=== PATIENT | female | born 1980 | race African-American/Black ===

== ENCOUNTER 2018-01-16 09:05 | Emergency (ER) | payer MEDICAID ==
[~2018-01-16] VITALS: Ht 154.9 cm; Wt 95.3 kg
[~2018-01-16 09:05] MED LIST: CLON0.1T; LOVA20TA4; METO25TA5
[2018-01-16 09:45] LABS: Basophils # (auto) 0.1 uL; Eosinophils # (auto) 0.3 uL; Eosinophils % (auto) 3.8 % (0.0-7.0); Hematocrit 41.1 % (36.0-46.0); Hemoglobin 13.5 g/dL (12.2-16.2); Lymphocytes # (auto) 2.9 uL; Lymphocytes % (auto) 35.7 % (10.0-50.0); Mean Corpuscular Hemoglobin 28.3 pg (28.0-32.0); Mean Corpuscular Hgb Conc. 32.8 g/dL (32.0-36.0); Mean Corpuscular Volume 86.2 fL (80.0-100.0); Monocytes # (auto) 0.5 uL; Monocytes % (auto) 5.6 % (0.0-12.0); Neutrophils # (auto) 4.4 uL; Neutrophils % (auto) 53.9 % (37.0-80.0); Nucleated Red Blood Cells % 0.1 %; Platelet Count (auto) 233 10^3/uL (140-450); Red Blood Cells 4.77 10^6/uL (4.0-5.20); Red Cell Distribution Width 16.6 % (11.8-14.3); White Blood Cell 8.2 10^3/uL (4.4-10.8)
[2018-01-16 09:53] LABS: Urine Bacteria NONE SEEN /hpf (None Seen); Urine Blood Negative /uL (Negative); Urine WBC <1 /hpf (0 - 5)
[2018-01-16 09:55] LABS: Alanine Aminotransferase 28 U/L (13-56); Albumin 3.2 g/dL (3.4-5.0); Amylase 89 U/L (25-115); Anion Gap 6 (5-15); Aspartate Aminotransferase 15 U/L (15-37); Blood Urea Nitrogen 14 mg/dL (7-18); Calcium 8.2 mg/dL (8.5-10.1); Carbon Dioxide 26 mmol/L (21-32); Chloride 105 mmol/L (98-107); Glucose 132 mg/dL (74-106); Lipase 168 U/L (73-393); Potassium 3.1 mmol/L (3.5-5.1); Sodium 137 mmol/L (136-145)
[2018-01-16 09:59] LABS: Alkaline Phosphatase 77 U/L (45-117); BUN/Creatinine Ratio 10.8; Bilirubin, Total 0.2 mg/dL (0.2-1.0); GFR African American 60 mL/min; GFR Non-African American 50 mL/min; Total Protein 7.2 g/dL (6.4-8.2)
[2018-01-16] MEDS ORDERED: POTASSIUM EFFERVESENT TAB 25 MEQ PO ONE (10:00)
[2018-01-16 10:16] LABS: Alcohol, Urine < 3.0 mg/dL (0-5); Amphetamine Screen, Urine NEGATIVE (NEGATIVE); Barbiturate Scree,Urine NEGATIVE (NEGATIVE); Benzodiazephine Screen, Urine NEGATIVE (NEGATIVE); Cannabinoid Screen, Urine POSITIVE (NEGATIVE); Cocaine Screen, Urine NEGATIVE (NEGATIVE); Opiate Scree,Urine NEGATIVE (NEGATIVE); Phencyclidine Screen, Urine NEGATIVE (NEGATIVE)
[2018-01-16] MEDS ORDERED: PROMETHAZINE HCL 25 MG/ML 1ML IV ONE (11:45)
[2018-01-16] MEDS ORDERED: KETOROLAC TROMETH 30 MG/ML 1ML VIAL IV ONE (11:45)
[2018-01-16] MEDS ORDERED: PROMETHAZINE HCL 25 MG/ML 1ML IV PRN (11:45)
[2018-01-16 11:53] VITALS: BP 119/86
== END 2018-01-16 13:27 | disposition home or self-care (01) ==
LOC: ER 09:05
DX: K80.20 Calculus of gallbladder without cholecystitis without obstruction (principal); F12.10 Cannabis abuse, uncomplicated; E87.6 Hypokalemia; E46 Unspecified protein-calorie malnutrition; R73.9 Hyperglycemia, unspecified; E78.5 Hyperlipidemia, unspecified; I10 Essential (primary) hypertension; F17.210 Nicotine dependence, cigarettes, uncomplicated; Z68.39 Body mass index [BMI] 39.0-39.9, adult; Z79.899 Other long term (current) drug therapy
CPT/HCPCS: 36415; 71046; 74176; 80053; 80307; 81001; 82150; 83690; 84484; 84702; 85025; 93005; 94761; 96374; 96375; 99285; J1885; J2550; J7030

== ENCOUNTER 2018-06-06 09:47 | Emergency (ER) | payer MEDICAID ==
[~2018-06-06] VITALS: Ht 165.1 cm; Wt 93.4 kg
[2018-06-06 11:47] LABS: Urine Bacteria NONE SEEN /hpf (None Seen); Urine Blood Negative /uL (Negative); Urine Specific Gravity 1.013 (1.001-1.035); Urine WBC 2 /hpf (0 - 5)
[2018-06-06 12:23] LABS: Basophils # (auto) 0 uL; Basophils % (auto) 0.4 % (0.0-2.0); Eosinophils # (auto) 0.3 uL; Eosinophils % (auto) 3.7 % (0.0-7.0); Hematocrit 41.3 % (36.0-46.0); Hemoglobin 13.3 g/dL (12.2-16.2); Lymphocytes # (auto) 2.7 uL; Mean Corpuscular Hemoglobin 27.7 pg (28.0-32.0); Mean Corpuscular Hgb Conc. 32.2 g/dL (32.0-36.0); Monocytes # (auto) 0.5 uL; Monocytes % (auto) 6.4 % (0.0-12.0); Neutrophils # (auto) 4.2 uL; Neutrophils % (auto) 54.5 % (37.0-80.0); Platelet Count (auto) 240 10^3/uL (140-450); Red Cell Distribution Width 16.6 % (11.8-14.3); White Blood Cell 7.6 10^3/uL (4.4-10.8)
[2018-06-06 12:55] LABS: Albumin 3.6 g/dL (3.4-5.0); Calcium 8.9 mg/dL (8.5-10.1); Potassium 3.3 mmol/L (3.5-5.1)
[2018-06-06 13:00] LABS: BUN/Creatinine Ratio 15.4; Bilirubin, Total 0.2 mg/dL (0.2-1.0); Total Protein 7.8 g/dL (6.4-8.2)
[2018-06-06 13:14] VITALS: BP 131/71
[2018-06-06] MEDS ORDERED: POTASSIUM CHL 10% (20 MEQ/15ML) 15ml ORAL SOLN PO ONE (13:15)
== END 2018-06-06 13:42 | disposition home or self-care (01) ==
LOC: ER 09:52
DX: K80.80 Other cholelithiasis without obstruction (principal); E87.6 Hypokalemia; E78.5 Hyperlipidemia, unspecified; I10 Essential (primary) hypertension; F17.210 Nicotine dependence, cigarettes, uncomplicated; Z79.899 Other long term (current) drug therapy
CPT/HCPCS: 36415; 74176; 80053; 81001; 85025

== ENCOUNTER 2018-09-14 22:36 | Emergency (ER) | payer MEDICAID ==
[~2018-09-14] VITALS: Ht 165.1 cm; Wt 94.3 kg
[2018-09-14 23:57] VITALS: BP 143/89
[2018-09-15] MEDS ORDERED: methylPREDNISolone SOD SUCC 125 MG/2 ML VL IM ONE (00:15)
[2018-09-15] MEDS ORDERED: cefTRIAXone SOD 1,000 MG VL IM ONE (00:15)
[2018-09-15] MEDS ORDERED: HYDROcodone-ACET 5/325MG TAB PO ONE (00:15)
== END 2018-09-15 00:57 | disposition home or self-care (01) ==
LOC: ER 22:38
DX: N61.1 Abscess of the breast and nipple (principal); E11.9 Type 2 diabetes mellitus without complications; F17.210 Nicotine dependence, cigarettes, uncomplicated
CPT/HCPCS: 81002; 81025; 96372; 99283; J0696; J2930

== ENCOUNTER 2025-02-18 15:55 | Emergency (ER) | payer MEDICAID ==
[~2025-02-18] VITALS: Ht 165.1 cm; Wt 86.0 kg
--- NOTE | 2025-02-18 18:26 | ED.PDOC ---
GI ASSESSMENT HPI Comments 44-year-old female presents to ER with complaints of right flank pain x 45 minutes. Patient reports that he started experiencing unprovoked right-sided flank pain 45 minutes prior to arrival to ER. She rates her current pain a 7/10 to right flank with radiation towards the right lower abdomen. States she did take Tylenol for her pain with some relief. Patient presents to ER ambulatory on arrival, with steady gait, in no distress. Denies fever, body aches, chills, night sweats, nausea/vomiting, dysuria/hematuria or any further symptoms/complaints Chief Complaint: Flank Pain Time Seen by MD: 18:15 Primary Care Provider: DR SHERMAN Reviewed Notes: Nurses Notes, Medications, Allergies Allergies: Coded Allergies: NO KNOWN ALLERGIES (Unverified , 05/14/10) Home Meds Active Scripts Acetaminophen (Acetaminophen) 500 Mg Tab, 500 MG PO Q4HPRN, #30 TAB 0 Refills Prov:EBONY KAUFFMAN 02/18/25 Reported Medications [Metoprolol Tart25 Mg] (Metoprolol Tartrate) 25 MG TAB No Conflict Check, MG 06/23/12 [[id number] Mg] (Lovastatin) 20 MG TAB No Conflict Check, MG 06/23/12 [Clonidine Hcl0.1 Mg] (Clonidine Hcl) 0.1 MG TAB No Conflict Check, MG 06/23/12 [Metoprolol Tart25 Mg] (Metoprolol Tartrate) 25 MG TAB No Conflict Check, MG 06/23/12 Information Source: Patient Mode of Arrival: Ambulatory Past Medical History PAST MEDICAL HISTORY: Anemia Past Medical History (Other): Stage 4 CKD Surgical History: RELIGIOUS EDUCATION COORDINATOR History: No Pertinent RELIGIOUS EDUCATION COORDINATOR History Family History Family History: No family hx of Cancer, No family hx of DM, No family hx of HTN, No family hx ofKidney conner Social History Smoker: Cigarettes, Less Than 1 Pack/Day Alcohol: Denies ETOH Use Drugs: Denies Drug Use Lives In: Home Constitutional: denies: chills, diaphoresis, fatigue, fever, malaise, sweats, weakness, others EENTM: denies: blurred vision, double vision, ear bleeding, ear discharge, ear drainage, ear pain, ear ringing, eye pain, eye redness, hearing loss, mouth pa in, mouth swelling, nasal discharge, nose bleeding, nose congestion, nose pain, photophobia, tearing, throat pain, throat swelling, voice changes, others Respiratory: denies: cough, hemoptysis, orthopnea, SOB at rest, shortness of breath, SOB with excertion, stridor, wheezing, others Cardiovascular: denies: chest pain, dizzy spells, diaphoresis, Dyspnea on exertion, edema, irregular heart beat, left arm pain, lightheadedness, palpitations, PND, syncope, others Gastrointestinal: denies: abdomen distended, abdominal pain, blood streaked bowels, constipated, diarrhea, dysphagia, difficulty swallowing, hematemesis, melena, nausea, poor appetite, poor fluid intake, rectal bleeding, rectal pain, vomiting, others Genitourinary: reports: others (As stated in HPI) Neurological: denies: dizziness, fainting, headache, left sided numbness, left sided weakness, numbness, paresthesia, pre-existing deficit, right sided numbness, right sided weakness, seizure, speech problems, tingling, tremors, weakness, others Musculoskeletal: denies: back pain, gout, joint pain, joint swelling, muscle pain, muscle stiffness, neck pain, others Integumetry: denies: bruises, change in color, change in hair/nails, dryness, laceration, lesions, lumps, rash, wounds, others Allergic/Immunocompromised: denies: Difficulty Healing, Frequent Infections, Hives, Itching, others Hematologic/Lymphatic: denies: anemia, blood clots, easy bleeding, easy bruising, swollen glands, others Endocrine: denies: excessive hunger, excessive sweating, excessive thirst, excessive urination, flushing, intolerance to cold, intolerance to heat, unexplained weight gain, unexplained weight loss, others Psychiatric: denies: anxiety, bipolar disorder, depression, hopeless, panic disorder, schizophrenia, sleepless, suicidal, others Physical Exam General Appearance: No Apparent Distress, Obese HEENT: PERRL/EOMI Neck: Full Range of Motion, Non-Tender, Normal Respiratory: Chest Non-Tender, Lungs Clear, No Accessory Muscle Use, No Respiratory Distress, Normal Breath Sounds Cardiovascular: No Murmur, No Gallop, Regular Rate/Rhythm Breast Exam: Deferred Gastrointestinal: Non Tender, No Pulsatile Mass, Soft Genitalia: Deferred Pelvic: Deferred Rectal: Deferred Extremities: Normal capillary refill, Normal range of motion Musculoskeletal : Extremity Location: Back (TTP to right flank noted. No CVA tenderness noted bilaterally) Neurologic: Alert, No Motor Deficits, Normal Affect, Normal Mood, No Sensory Deficits Cerebellar Function: Normal Reflexes: Normal Skin: Dry, Normal Color, Warm Peripheral Pulses: 2+ Radial (R), 2+ Radial (L), 2+ Brachial (R), 2+ Brachial (L) Lymphatic: No Adenopathy Was a procedure done? Was a procedure done?: No Sedation Sedation?: No GI differential Dx Differential Diagnosis: Appendicitis, GI hemorrhage, Ischemic Bowel, Trauma intraabdominal, Urinary Obstruction, UTI, Urolithiasis X-Ray, Labs, Meds, VS Vital Signs Date Time Temp Pulse Resp B/P (MAP) Pulse Ox O2 Delivery O2 Flow Rate FiO2 02/18/25 16:03 98.3 91 20 143/69 96 98.3 Lab Test 02/18/25 18:27 02/18/25 18:05 Range/Units White Blood Count 9.3 4.4-10.8 10^3/uL Red Blood Count 3.97 L 4.0-5.20 10^6/uL Hemoglobin 9.5 L 12.2-16.2 g/dL Hematocrit 29.9 L 36.0-46.0 % Mean Corpuscular Volume 75.3 L 80.0-100.0 fL Mean Corpuscular Hemoglobin 24.0 L 28.0-32.0 pg Mean Corpuscular Hemoglobin Concent 31.9 L 32.0-36.0 g/dL Red Cell Distribution Width 21.4 H 11.8-14.3 % Platelet Count 322 140-450 10^3/uL Mean Platelet Volume 8.7 6.9-10.8 fL Neutrophils (%) (Auto) 65.9 37.0-80.0 % Lymphocytes (%) (Auto) 24.0 10.0-50.0 % Monocytes (%) (Auto) 5.8 0.0-12.0 % Eosinophils (%) (Auto) 3.6 0.0-7.0 % Basophils (%) (Auto) 0.7 0.0-2.0 % Neutrophils # (Auto) 6.1 1.6-8.6 10 ^3/uL Lymphocytes # (Auto) 2.2 0.4-5.4 10 ^3/uL Monocytes # (Auto) 0.5 0-1.3 10 ^3/uL Eosinophils # (Auto) 0.3 0-0.8 10 ^3/uL Basophils # (Auto) 0.1 0-0.2 10 ^3/uL Nucleated Red Blood Cells 0.0 % Sodium Level 140 136-145 mmol/L Potassium Level 3.7 3.5-5.1 mmol/L Chloride Level 112 H 98-107 mmol/L Carbon Dioxide Level 23 20-31 mmol/L Anion Gap 5 5-15 Blood Urea Nitrogen 16 9-23 mg/dL Creatinine 2.40 H 0.550-1.02 mg/dL Glomerular Filtration Rate Calc 25 >90 mL/min BUN/Creatinine Ratio 6.7 L 10.0-20.0 Serum Glucose 95 74-106 mg/dL Calcium Level 8.7 8.7-10.4 mg/dL Urine Color Light-yellow Yellow Urine Clarity Clear Clear Urine pH 5.5 5.0-9.0 Urine Specific [place] 1.016 1.001-1.035 Urine Protein 2+ H Negative Urine Ketones Negative Negative Urine Blood Trace H Negative /uL Urine Nitrite Negative Negative Urine Bilirubin Negative Negative Urine Urobilinogen Normal Negative mg/dL Urine Leukocyte Esterase Negative Negative /uL Urine RBC 1 0 - 4 /hpf Urine Microscopic WBC 1 0-5 /HPF Urine Squamous Epithelial Cells Few <5 /hpf Urine Bacteria Few H None Seen /hpf Urine Glucose Normal Normal mg/dL PATIENT: MICHEL MONTEZ LACCT: [id number]: [id number] : 1980 LOC: ER ROOM / BED: / AGE / SEX: 44 / F ADM STATUS: REG ER SERVICE 1821 ORDERING PHYSICIAN: EBONY KAUFFMAN PROCEDURE(s): ABPL - CT AB PEL WO CON-NO ORAL OR IV REASON: right flank pain ORDER NUMBER(s): [id number], ACCESSION NUMBER(s): [id number] EXAM: CT CT AB PEL WO CON-NO ORAL OR IV INDICATION: right flank pain TECHNIQUE: Volumetric multidetector CT images of the abdomen and pelvis were obtained without contrast. All CT scans at this facility use dose modulation, iterative reconstruction, and/or weight based dosing when appropriate to reduce radiation dose to as low as reasonably achievable. COMPARISON: None FINDINGS: [LOWER CHEST]: The partially visualized lung bases are clear without a pleural effusion. The cardiac size is normal without pericardial effusion. [LIVER]: Normal hepatic size without suspicious focal lesion. [GALLBLADDER AND BILIARY TREE]: Cholelithiasis with presumed gallbladder sludge. Large gallstone measuring up to 2.5 cm of the gallbladder neck. [SPLEEN]: Unremarkable. [PANCREAS]: Unremarkable. [ADRENAL GLANDS]: Unremarkable [KIDNEYS]: No hydronephrosis. Indeterminate 1 mm phleboliths versus stone of the right distal ureter (2-76). No proximal hydroureter or hydronephrosis No suspi cious focal lesion. [BLADDER]: Unremarkable for the degree distention. [REPRODUCTIVE ORGANS]: Unremarkable. [BOWEL/MESENTERY]: Stomach distention. Normal appendix. [ASCITES]: Absent [LYMPHADENOPATHY]: No pathologically enlarged lymph nodes by CT size criteria [VASCULATURE]: No aneurysmal dilatation. [ABDOMINAL WALL]: Unremarkable. [MUSCULOSKELETAL]: No acute fracture or aggressive focal osseous lesion. [OTHER]: None IMPRESSION: 1. No hydronephrosis 2. Indeterminate 1 mm phleboliths versus stone of the right distal ureter 3. Cholelithiasis with gallbladder sludge. 4. Stomach distention. ATED BY: JUSTIN NOLAND MD DICTATED DATE/TIME: 02/18/251908 SIGNED BY: JUSTIN NOLAND MD SIGNED DATE/TIME: 02/18/251908 CC: CBC reviewed- hemoglobin 9.5 BMP reviewed - creatinine 2.4, GFR 25 Urinalysis reviewed without any significant abnormalities Urine culture ordered Hep-Lock IV ordered NS 1 L IV ordered Gypsum p.o. ordered Zofran 4 mg p.o. ordered Advised to avoid NSAIDs Advised to drink plenty of fluids Patient had improvement in symptoms, afebrile and in no distress prior to discharge Advised to follow up with PCP and nephrology/urology in 1-2 days Patient verbalized understanding and agreeable with current plan of care Advised to return to ER immediately if symptoms were Images Reviewed?: Images reviewed and evaluated by me Time of 1ST Reevaluation: 18:25 Reevaluation 1ST: N/A Patient Education/Counseling: Diagnosis, Treatment, Prognosis, Need For Follow Up Family Education/Counseling: No Family Present SEPSIS Sepsis Screen Date sepsis recognized/suspect: Feb 18, 2025 Time Sepsis recognized/suspect: 1603 Recent Procedure: No On Antibiotic Therapy: No Respiratory Rate >20: No Heart Rate >90: Yes Temp<36 C (96.8 F) or >38.3 C: No SBP <90 or MAP <65 mmHG: No New Acute Mental Status Change: No Is the patient on CPAP, BIPAP,: No Physician Orders Ct Ab Pel Wo Con-No Oral Or Iv (02/18/25 18:21) Urine Bacterial Culture (02/18/25 18:25) Heplock Iv (02/18/25 ) Sodium Chloride 0.9% (02/18/25 19:30) Vital Signs Date Time Temp Pulse Resp B/P (MAP) Pulse Ox O2 Delivery O2 Flow Rate FiO2 02/18/25 16:03 98.3 91 20 143/69 96 98.3 Laboratory Tests Test 02/18/25 18:27 White Blood Count 9.3 10^3/uL (4.4-10.8) Departure 1 Departure Time of Disposition: 19:42 Impression: Primary Impression: Right flank pain Additional Impression: Hx of chronic kidney disease Disposition: 01 HOME / SELF CARE / HOMELESS Condition: Stable e-Prescriptions Acetaminophen (Acetaminophen) 500 Mg Tab 500 MG PO Q4HPRN, #30 TAB 0 Refills Prov: EBONY KAUFFMAN 02/18/25 Discharged With: Significant Other Critical Care Note Critical Care Time?: No Stability Stability form required: No Heart Score Heart Score: Heart Score Response (Comments) Value History N/A 0 EKG N/A 0 Age N/A 0 Risk Factors N/A 0 Troponin N/A 0 Total 0 EBONY KAUFFMAN Feb 18, 2025 18:26
[2025-02-18 18:42] LABS: Potassium 3.7 mmol/L (3.5-5.1); Sodium 140 mmol/L (136-145)
[2025-02-18 18:43] LABS: Anion Gap 5 (5-15); Carbon Dioxide 23 mmol/L (20-31)
[2025-02-18 18:44] LABS: Calcium 8.7 mg/dL (8.7-10.4)
[2025-02-18 18:48] LABS: Glucose 95 mg/dL (74-106)
[2025-02-18 18:49] LABS: BUN/Creatinine Ratio 6.7 (10.0-20.0); Blood Urea Nitrogen 16 mg/dL (9-23)
[2025-02-18 19:08] LABS: Chloride 112 mmol/L (98-107)
--- NOTE | 2025-02-18 19:12 | DVH ---
EXAM: CT CT AB PEL WO CON-NO ORAL OR IV INDICATION: right flank pain TECHNIQUE: Volumetric multidetector CT images of the abdomen and pelvis were obtained without contrast. All CT scans at this facility use dose modulation, iterative reconstruction, and/or weight based dosing when appropriate to reduce radiation dose to as low as reasonably achievable. COMPARISON: None FINDINGS: [LOWER CHEST]: The partially visualized lung bases are clear without a pleural effusion. The cardiac size is normal without pericardial effusion. [LIVER]: Normal hepatic size without suspicious focal lesion. [GALLBLADDER AND BILIARY TREE]: Cholelithiasis with presumed gallbladder sludge. Large gallstone measuring up to 2.5 cm of the gallbladder neck. [SPLEEN]: Unremarkable. [PANCREAS]: Unremarkable. [ADRENAL GLANDS]: Unremarkable [KIDNEYS]: No hydronephrosis. Indeterminate 1 mm phleboliths versus stone of the right distal ureter (2-76). No proximal hydroureter or hydronephrosis No suspicious focal lesion. [BLADDER]: Unremarkable for the degree distention. [REPRODUCTIVE ORGANS]: Unremarkable. [BOWEL/MESENTERY]: Stomach distention. Normal appendix. [ASCITES]: Absent [LYMPHADENOPATHY]: No pathologically enlarged lymph nodes by CT size criteria [VASCULATURE]: No aneurysmal dilatation. [ABDOMINAL WALL]: Unremarkable. [MUSCULOSKELETAL]: No acute fracture or aggressive focal osseous lesion. [OTHER]: None IMPRESSION: 1. No hydronephrosis 2. Indeterminate 1 mm phleboliths versus stone of the right distal ureter 3. Cholelithiasis with gallbladder sludge. 4. Stomach distention.
[2025-02-18 19:17] LABS: Hematocrit 29.9 % (36.0-46.0); Hemoglobin 9.5 g/dL (12.2-16.2); Mean Corpuscular Hemoglobin 24.0 pg (28.0-32.0); Mean Corpuscular Volume 75.3 fL (80.0-100.0); Nucleated Red Blood Cells % 0.0 %
[2025-02-18 19:36] LABS: Urine Protein, UAD 2+ (Negative)
[2025-02-18] MEDS ORDERED: ACET500T58 PO (19:43)
[2025-02-18 20:02] VITALS: BP 127/84; PULSE 60; RESP 16; TEMP 98; O2SAT 99
[2025-02-18] MEDS: ONDANSETRON ODT 4 MG TAB PO ONE (20:17)
[2025-02-18] MEDS: HYDROcodone-ACET 5/325MG TAB PO ONE (20:17)
[2025-02-18] MEDS: SODIUM CHLORIDE 0.9% 1,000 ML IV ONE (20:20)
== END 2025-02-18 21:25 | disposition home or self-care (01) ==
LOC: ER 15:55
DX: R10.A1 Flank pain, right side (principal); F17.210 Nicotine dependence, cigarettes, uncomplicated; N18.4 Chronic kidney disease, stage 4 (severe); Z79.899 Other long term (current) drug therapy
CPT/HCPCS: 36415; 74176; 80048; 81001; 85025; 87086; 96360; 99284; J7030; Q0162